=== PATIENT | male | born 1985 | race Caucasian/White ===

== ENCOUNTER 2016-05-06 09:50 | Emergency (ER) | payer OTHER ==
[2016-05-06 11:48] LABS: BASOPHIL 0.4 % (0-2); EOSINOPHIL 0.1 % (0-5); HCT 45.3 % (42.0-52.0); LYMPHOCYTE 34.5 % (15-48); MCH 28.7 pg (25.0-31.0); MCHC 33.1 g/dL (32.0-36.0); MCV 86.8 fL (78.0-100.0); MONOCYTE 16.4 % (0-12); MPV 10.7 fL (6.0-9.5); NEUTROPHIL 48.6 % (41-80); PLT 262 K/uL (150-400); RBC 5.22 M/uL (4.70-6.00); RDW 13.5 % (11.5-14.0); WBC 6.8 K/uL (4.0-10.5)
[2016-05-06 12:01] LABS: ALBUMIN 4.3 g/dL (3.5-5.0); BILIRUBIN - TOTAL 0.2 mg/dL (0.1-1.0); GLOBULIN (CALCULATION) 3.1 g/dL (2.2-4.2); POTASSIUM 3.6 mmol/L (3.5-5.1); TOTAL PROTEIN 7.4 g/dL (6.4-8.3)
== END 2016-05-06 13:33 | disposition home or self-care (01) ==
LOC: FER 09:50
PROVIDERS: Emergency Medicine
DX: J11.1 Influenza due to unidentified influenza virus with other respiratory manifestations (principal); E86.0 Dehydration; R19.7 Diarrhea, unspecified
CPT/HCPCS: 36415; 71020; 80053; 85025; 87804; 87899; 94640; J2405